=== PATIENT | female | born 1935 | race Caucasian/White ===

== ENCOUNTER → 2017-01-04 | Outpatient (CLI) | payer OTHER ==
--- NOTE | 2017-01-04 10:13 | DI ---
LEFT ANKLE, 01/04/2017 9:28 AM: Clinical History: Acute left ankle pain. Previous Exam: None at this facility. 3 views are submitted. There is soft tissue swelling both medially and laterally at the ankle joint. On the AP and oblique projections, there is a calcific density located inferiorly and medially to the tip of the medial malleolus. This may represent an avulsion fracture although there is no history of trauma indicated on the x-ray request. No other bony abnormality is noted. There is no ankle effusio n. Readin. There is a bony density inferior to the medial malleolus. This may represent an avulsion fracture although there is no indication and history that the patient sustained trauma. 2. The remainder of the examination is normal.
--- NOTE | 2017-01-04 10:16 | DI ---
LEFT OS CALCIS EXAM, 01/04/2017 9:28 AM: Clinical History: Left heel pain. Previous Exam: None at this facility. 2 views are submitted. There is no acute soft tissue, osseous, or joint abnormality. There is a bony spur on the calcaneus at the attachment of the plantar fascia. Calcifications are present in the plan tar fascia. Soft tissue swelling is present along the anterior aspect of the talus. Reading: No acute bony abnormalities are identified.
== END ==
LOC: MOB RAD 09:29
PROVIDERS: ATTEND Physician Assistant
DX: M79.672 Pain in left foot (principal); M77.32 Calcaneal spur, left foot
CPT/HCPCS: 73610; 73650

== ENCOUNTER 2018-09-05 11:29 | Inpatient (IN) ==
--- NOTE | 2018-09-05 11:46 | PDOC ---
Hip Injury/Pain HPI - General Chief Complaint: Lower Extremity Problem/Injury Stated Complaint: slip/fall right hip pain Date Seen by Provider: 09/05/18 Time Seen by Provider: 11:31 Source: POSITIVE: Patient Exam Limitations: POSITIVE: No limitations Nurse's Notes Reviewed & Considered: Yes EMS Report Reviewed & Considered: Verbal - History of Present Illness Initial Comments: 83 yo female presents to ED with complaint of right hip pain. patient slipped and fell on ice today. Patient denies blow to her head. Denies LOC. Denies neck pain. Denies pain in upper extremities. Denies CP/SOB. Denies N/V/D/C. Denies vision changes. Denies pain in lower leg. Denies lacerations/abrasions. Patient is unable to bear weight on right leg. Have you received a tetanus shot in the past 10 years?: Unknown Location: Right Hip Timing: REPORTS: Abrupt Duration: 1-3 hours Severity: Severe Location at Time of Onset: REPORTS: Street Context: REPORTS: Fall, Slipped Concurrent Injuries: DENIES: Neck, Head, Back, Chest, Abdomen, Extremities, Face Quality: REPORTS: Sharpness, Stabbing Modifying Factors: REPORTS: Movement Symptoms Prior to Fall: DENIES: Fever, Chills, Diaphoresis, Weakness, Chest Pain, Rapid Heart Rate, Nausea, Vomiting, Diarrhea, Dizziness, Light-Headedness, Headache, Seizure Subsequent Symptoms: REPORTS: Weakness. DENIES: Sensory Loss, Motor Loss, Numbness, Bowel / Bladder Problems Similar Symptoms Previously: No Recent Care Received: REPORTS: Denies Any Prior Injuries Related to Current Complaint?: No - Patient Home Medications Home Medications: Home Medications Bismuth Subsalicylate [Pepto-Bismol] 262 mg PO PRN PRN 07/10/13 Calcium Carbonate [Tums] 200 mg PO PRN PRN 07/10/13 Aspirin [Blake Chewable Aspirin] 81 mg PO DAILY tab 05/20/16 atorvastatin 20 mg tablet 20 mg PO QDAY #90 tab 05/18/18 ranitidine 150 mg tablet 150 mg PO QHS #90 tab 05/18/18 olmesartan 40 mg-hydrochlorothiazide 25 mg tablet 0.5 tab PO DAILY #15 tab 07/15/18 azithromycin 250 mg tablet 250 mg PO .COMPLEX #6 tab 07/28/18 budesonide-formoterol HFA 160 mcg-4.5 mcg/actuation aerosol inhaler 2 inh INH BID #10.2 g 07/28/18 promethazine 6.25 mg-codeine 10 mg/5 mL syrup 5 ml PO BID PRN #118 ml 07/28/18 - Patient Allergies Allergies/Adverse Reactions: Allergies Allergy/AdvReac Type Severity Reaction Status Date / Time Sulfa (Sulfonamide Allergy Intermediate HIVES Verified 09/05/18 11:37 Antibiotics) venom-honey bee AdvReac Mild SWELLING Verified 09/05/18 11:37 PCN Allergy Intermediate HIVES Uncoded 09/05/18 11:37 Past Medical History - heen HEENT History: Cataracts Cardiovascular History: Hypertension, Hyperlipidemia Respiratory History: Denies History Gastrointestinal History: GERD Genitourinary History: Denies History Endocrine History: Denies History Musculoskeletal History: Denies History Neurological History: Denies History Blood Disorders: Denies History Psychiatric History: Denies History History of Sexually Transmitted Diseases: No Cancer History: Denies History History of MDRO: No History of Other Communicable Diseases: No Alcohol Use: None In the Past 12 Months, Have Used or Abuse Any Substance: None Previous Surgical History: Yes Type / Date of Surgery: CATARACT EXT/ CORONARY ANGIOGRAM/ LUMPECTOMY Anesthesia Reactions: No Malignant Hyperthermia: No Significant Family History: No pertinent family hx ROS - Limitations ROS Limitations: No Limitations Constitution: REPORTS: Denies Symptoms Cardiovascular: REPORTS: Denies Cardiac Symptoms Respiratory: REPORTS: Denies Resp Symptoms Neurological: REPORTS: Denies Neuro Symptoms Gastrointestinal: REPORTS: Denies GI Symptoms Endocrine: REPORTS: Denies Symptoms Musculoskeletal: REPORTS: Other (Right hip and right leg pain) Genitourinary: REPORTS: Denies Symptoms Eyes: REPORTS: Denies Symptoms ENT: REPORTS: Denies Symptoms Skin: REPORTS: Denies Skin Symptoms Lympathic: REPORTS: Denies Lympathic Symptoms Immunologic: POSITIVE: Denies Symptoms Psychiatric: POSITIVE: Denies Psych Symptoms Hip Injury / Pain Exam - General Appearance General Appearance: POSITIVE: Alert, Cooperative, Moderate Distress - Lower Extremity Extremities: POSITIVE: No Pedal Edema, No Obvious Injury to Knee, No Deformity to Knee, Shortening of Leg, Hip Pain on Leg Movement. NEGATIVE: Pedal Edema (TTP right hip with shortening of right leg.), Ecchymosis, Erythema, Soft Tissue Injury - HEENT HEENT: POSITIVE: Head Inspection Nml, Eyes Inspection Nml, Ears Inspection Nml, Nose Inspection Nml, Oral/Dental Inspect. Nml, Pharynx Inspect. Nml, PERRL, EOMI - Pupil Size Pupil Size: 3 mm: Bilateral - Neck/Back Neck: POSITIVE: Normal Inspection, Non-Tender Back: POSITIVE: Normal Inspection, No CVA Tenderness, No Vertebral Tenderness - Respiratory / CVS Cardiovascular: POSITIVE: Regular Rate and Rhythm, Heart Sounds Normal, Equal Pulses, Strong Pulses Respiratory: POSITIVE: Chest Non Tender, No Ecchymosis, Breath Sounds Normal, No Respiratory Distress - Abdomen Abdomen: Soft: (All Quadrants), Normal Bowel Sounds: (All Quadrants), Denies Tenderness: (All Quadrants), No Splenomegaly: (All Quadrants), No Hepatomegaly: (All Quadrants), No Guarding: (All Quadrants), No Rebound: (All Quadrants), No Palpable Pulse: (All Quadrants), No Palpabale Mass: (All Quadrants), No Distention: (All Quadrants) - Skin Skin: POSITIVE: Color Normal, No Rash - Neuro/Psych Neuro / Psych: POSITIVE: Oriented x 3, Neuro Grossly Intact, Mood Appropriate, Affect Appropriate Hip Injury / Pain Progress - Results Reviewed by me Xrays/CTs/US Reviewed by me: Yes Discussed with Radiologist: No Radiology Findings: Fracture of right hip surgical neck, displaced superiorly. Pelvis appears normal on xrays. Lab Results Reviewed by Me: Yes CBC and BMP: 09/05/18 14:45 09/05/18 14:45 - Patient's Progress Pain Medication Addressed: POSITIVE: Yes (Initially patient refused then accepted morphine for pain) Re-Examine Time: 13:09 (Discussed results with patient and recommendation for admission. She & her are amenable to plan) Status: POSITIVE: Unchanged MDM / ED Course: 83 yo female presented with acute right hip pain after a fall on the ice today. Xrays of right hip show fracture of the neck of right femur. No pelvic fracture noted. Labs performed and reviewed. I recommended admission. Patient and were amenable to plan for admission. Case discussed with Dr. Miller of orthopedics and he will consult on the patient. I also discussed the case w haven Rodriguez of hospitalist service and he accepted the patient for admission. Patient was given two dose of morphine in ED for pain. Patient admitted to floor in stable but guarded condition. - Consult Consult (If Yes, Name of Consulting MD & Time Called): Yes (Consulted Dr. Miller orthopedics and Dr. Rodriguez hospitalist. ) Consulting MD will see pt:: POSITIVE: [facility] Admit Counseled: POSITIVE: Patient, Family, RE: Radiology Results, RE: DX (Discussed all results and consults with patient and her . They expressed understanding of need for admission.) Patient Care Time - Estimated PCT Patient Care Time (In Minutes): 60 Vital Signs - Recent Vital Signs Vital Signs: Vital Signs (Last 8 hours) Temp Pulse Resp BP Pulse Ox 09/05/18 14:11 83 16 09/05/18 11:50 97.4 F 68 18 176/75 91 - VS Reviewed Vital Signs Reviewed: Yes Discharge Clinical Impression: Fracture of hip, right, closed, Hip pain, acute Discharge Disposition: Admit to Inpatient (09/05/2018 at 1250) Condition: Good Date Decision to Admit to Inpatient: 09/05/18 Time Decision to Admit to Inpatient: 13:00
[2018-09-05] MEDS ORDERED: MORPHINE SULFATE 2 MG/1 ML IVP ONE ×2 (11:50→13:39)
--- NOTE | 2018-09-05 13:08 | DI ---
AP PELVIS and RIGHT HIP, 09/05/2018 11:46 AM: Clinical History: Injury. The patient fell. Pain. Previous Exam: None at this facility. Hip View: AP and cross table lateral. AP Pelvis: Soft Tissues: Normal. The patient is morbidly obese. This detracts from the overall quality and signi ficantly limits the diagnostic quality of the exam with respect to small or fine detail structures. Bony Pelvis: Intact. Subtle or occult fractures could be missed particularly because of the patient's size. Sacrum and SI Joints: Normal. Symphysis Pubis: Normal. Right Hip: Femoral Head/Neck Junction: Fracture through the neck. The neck appears to have been reabsorbed and t his suggests this may be a subacute or chronic fracture. Acetabulum: Non-dysplastic. No acetabular overcoverage. No retroversion. Hip Joint Space: Normal joint space. Readin. Fracture of the neck of the right hip. The neck appears to have been reabsorbed and this would johnson ggest this is a subacute or chronic fracture. If further detail is required, then consider a CT scan of the pelvis. 2. The AP pelvis exam appears normal. Because of the patient's size, subtle fractures could be misse d.
--- NOTE | 2018-09-05 13:59 | PDOC ---
HPI - History of Present Illness History of Present Illness: This very nice 83-year-old female who comes to the ER complaining of right hip pain, unfortunately she is slipped on the ice today hurting her right side. In the ER x-ray revealed fracture of the head of the femur. She denies hitting any other part of her body nice passing out no chest pain nausea or vomiting to be surgeon was called already by the ER physician hospitalist service be admitting her for further evaluation and treatment by orthopedic Past Medical History Medical History: Hypertension, high cholesterol Tobacco Use: Former Smoker In the Past 12 Months, Have Used or Abuse Any of the Following Substance: None Medication / Allergies Home Medications: Home Medications Medication Instructions Recorded Confirmed Type Bismuth Subsalicylate 262 mg PO PRN PRN 07/10/13 09/05/18 History [Pepto-Bismol] Calcium Carbonate [Tums] 200 mg PO PRN PRN 07/10/13 09/05/18 History Aspirin [Blake Chewable Aspirin] 81 mg PO DAILY tab 05/20/16 09/05/18 History atorvastatin 20 mg tablet 20 mg PO QDAY #90 tab 05/18/18 09/05/18 Rx ranitidine 150 mg tablet 150 mg PO QHS #90 tab 05/18/18 09/05/18 Rx olmesartan 40 0.5 tab PO DAILY #15 tab 07/15/18 09/05/18 Rx mg-hydrochlorothiazide 25 mg tablet azithromycin 250 mg tablet 250 mg PO .COMPLEX #6 tab 07/28/18 09/05/18 Rx budesonide-formoterol HFA 160 2 inh INH BID #10.2 g 07/28/18 09/05/18 Rx mcg-4.5 mcg/actuation aerosol inhaler promethazine 6.25 mg-codeine 10 5 ml PO BID PRN #118 ml 07/28/18 09/05/18 Rx mg/5 mL syrup Allergies/Adverse Reactions: Allergies Allergy/AdvReac Type Severity Reaction Status Date / Time Sulfa (Sulfonamide Allergy Intermediate HIVES Verified 09/05/18 11:37 Antibiotics) venom-honey bee AdvReac Mild SWELLING Verified 09/05/18 11:37 PCN Allergy Intermediate HIVES Uncoded 09/05/18 11:37 Review of Systems - Review of Systems All Systems: Reviewed & No Additional Complaints Except as Stated - Respiratory Respiratory: DENIES: Negative System Review, Cough, Sputum, Dyspnea At Rest, Dyspnea with Exertion, Pleuritic Pain, Hemoptysis, Wheezing, Other, See HPI - Cardiovascular Cardiovascular: DENIES: Negative System Review, Chest Pain, Edema, Syncope, Palpitations, Orthopnea, Paroxysmal Nocturnal Dyspnea, Other, See HPI - Gastrointestinal Gastrointestinal / Abdominal: DENIES: Negative System Review, Nausea, Vomiting, Diarrhea, Constipation, Abdominal Pain, Bloody Stool, Poor Appetite, Heartburn, Regurgitation, Bloating, Lactose Intolerance, Melena, Bright Red Blood per Rectum, Other, See HPI Exam - Vitals Vital Signs: Vital Signs Temperature 97.4 F Temperature Source Temporal Artery Scan Pulse Rate [Pulse Oximeter 68 Bilateral] Respiratory Rate 18 Blood Pressure [Left Arm] 176/75 Pulse Ox 91 Oxygen Delivery Method Room Air Height 5 ft 3 in Weight 182 lb - General General Appearance: No Acute Distress, Cooperative - Neck Neck Exam: Normal Inspection, Full ROM, No Tenderness, No Lymphadenopathy, No Thyromegaly, JVP is not Raised - Respiratory Respiratory Exam: POSITIVE: Clear to Auscultation - Bilaterally, Breathing Non Labored, Normal To Percussion, Normal to Percussion and Palpation - Cardiovascular Cardiovascular Exam: POSITIVE: RRR, No Murmur, No Clicks, No Gallops, No Rubs, PMI Non-Displaced, +S1 - GI/Abdominal GI/Abdominal Exam: POSITIVE: Normal Bowel Sounds, Non Tender, Non Distended, Soft, No Masses, No Hepatomegaly, No Splenomegaly, No Organomegaly - Extremities Extremities Exam: POSITIVE: No Clubbing Present, +1 Edema Assessment and Plan - Patient Problems (1) Hip fracture Current Visit: Yes Status: Acute Comment: Dr. Miller surgeon was consulteddefer for further evaluation and treatment Code(s): S72.009A - Fracture of unspecified part of neck of unspecified femur, initial encounter for closed fracture (2) Benign essential hypertension Current Visit: No Status: Acute Onset Date: 08/03/12 Comment: Tinea current home medication will give 1 dose of IV Lasix considering the pulse 1 edema Code(s): I10 - Essential (primary) hypertension
[2018-09-05] MEDS ORDERED: LIDOCAINE HCL 2 % 10 ML JELLY URO-JECT TOPICAL PRN ×2 (14:00→15:34)
[2018-09-05] MEDS ORDERED: CALCIUM CARBONATE 500 MG (TUMS) CHEWABLE TABLET PO PRN ×2 (14:10)
[2018-09-05] MEDS ORDERED: ACETAMINOPHEN 325 MG TABLET PO PRN (14:10)
[2018-09-05] MEDS ORDERED: HYDROmorphone 2 MG/1 ML IVP PRN (14:10)
[2018-09-05] MEDS ORDERED: Prometh/Codeine Liquid 10/6.25 MG/5 ML ORAL.SYRIN PO PRN (14:10)
[2018-09-05] MEDS ORDERED: DOCUSATE 100 MG CAPSULE PO PRN (14:10)
[2018-09-05] MEDS ORDERED: ONDANSETRON 4 MG/2 ML VIAL IVP PRN (14:10)
[2018-09-05] MEDS ORDERED: HYDROcodone-APAP 5 MG -325 MG TABLET PO PRN ×2 (14:10→16:27)
[2018-09-05] MEDS ORDERED: LIDOCAINE W/ SODIUM BICARB 0.5 ML SYR SUBD PRN (14:10)
--- NOTE | 2018-09-05 14:15 | DI ---
XR HIP 1VW U/L,09/05/2018 1:12 PM: Clinical History: Left hip pain. Previous Exam: None at this facility. Findings: A single view of the left hip is obtained, and demonstrate mild diffuse osteopenia. There is no fract ure seen on this exam. There is mild loss of joint space within the left hip. Impression: Degenerative changes of the left hip without fractures.
[2018-09-05 14:58] LABS: Hematocrit [HCT] 42.1 % (37.0-47.0); Hemoglobin [HGB] 14.5 g/dL (12.0-16.0); MEAN CORPUSCULAR HEMOGLOBIN 30.1 PG (27-31); MEAN CORPUSCULAR HGB CONC 34.4 g/dL (33-37); MEAN CORPUSCULAR VOLUME 87.5 FL (81-99); MEAN PLATELET VOLUME 10.3 FL (7.4-12.2); RED BLOOD COUNT 4.81 10^6/uL (4.20-5.40)
[2018-09-05 15:04] LABS: BLOOD UREA NITROGEN 21 mg/dL (7-22); SERUM ALBUMIN 3.9 g/dL (3.5-4.8)
[2018-09-05 15:40] LABS: BILIRUBIN,URINE NEGATIVE (NEG); CLARITY,URINE Slightly Cloudy (CLEAR); COLOR,URINE YELLOW (Y); GLUCOSE, URINE (UA) NEGATIVE (NEG); PH,URINE 5.5 (5.0-8.5); PROTEIN,URINE TRACE mg/dl (NEG)
[2018-09-05 15:50] LABS: OCCULT BLOOD,URINE TRACE (NEG); URINE SAMPLE TYPE CATH SPECIMEN
[2018-09-05 15:51] LABS: SQUAMOUS EPITHELIAL CELL,UR MANY
--- NOTE | 2018-09-05 16:07 | CONSULT ---
Consult Note - Consult Consult Date: 09/05/18 Reason for Consult: PreOp Consulation : Ortho Requesting Physician: Dr Rodriguez Primary Care Provider: Deejay Magallon MD - History of Present Illness History of Present Illness: Patient is an 83-year-old female who slipped on ice today landing on her right side immediate pain and discomfort and deformity to the right lower extremity with external rotation and shortening. Patient was brought to the emergency room where x-rays were taken and found to have a displaced femoral neck fracture. Patient notes that she had no pain in the hip prior to the fall today she is perfectly fine. She also denies any presyncopal episodes no dizziness shortness of breath chest pain lightheadedness or other changes and patient notes that she had no loss of consciousness or other symptoms with the fall. Past Medical History Medical History: Hypertension, high cholesterol Tobacco Use: Former Smoker In the Past 12 Months, Have Used or Abuse Any of the Following Substance: None Medication / Allergies Home Medications: Home Medications 3 Medication Instructions Recorded Confirmed Type Bismuth Subsalicylate 262 mg PO PRN PRN 07/10/13 09/05/18 History [Pepto-Bismol] Calcium Carbonate [Tums] 200 mg PO PRN PRN 07/10/13 09/05/18 History Aspirin [Blake Chewable Aspirin] 81 mg PO DAILY tab 05/20/16 09/05/18 History atorvastatin 20 mg tablet 20 mg PO QDAY #90 tab 05/18/18 09/05/18 Rx ranitidine 150 mg tablet 150 mg PO QHS #90 tab 05/18/18 09/05/18 Rx olmesartan 40 0.5 tab PO DAILY #15 tab 07/15/18 09/05/18 Rx mg-hydrochlorothiazide 25 mg tablet azithromycin 250 mg tablet 250 mg PO .COMPLEX #6 tab 07/28/18 09/05/18 Rx budesonide-formoterol HFA 160 2 inh INH BID #10.2 g 07/28/18 09/05/18 Rx mcg-4.5 mcg/actuation aerosol inhaler promethazine 6.25 mg-codeine 10 5 ml PO BID PRN #118 ml 07/28/18 09/05/18 Rx mg/5 mL syrup Allergies/Adverse Reactions: Allergies Allergy/AdvReac Type Severity Reaction Status Date / Time Sulfa (Sulfonamide Allergy Intermediate HIVES Verified 09/05/18 11:37 Antibiotics) venom-honey bee AdvReac Mild SWELLING Verified 09/05/18 11:37 PCN Allergy Intermediate HIVES Uncoded 09/05/18 11:37 Exam - - Exam: Examination shows that the patient has a shortened externally rotated extremity on the right. She has good motor and sensory to the foot and ankle. She has good pulses. She has no significant distal swelling or edema. Patient with l imited motion and has quite a bit of pain and discomfort she has no areas of skin breakdown or other lesions around the hip. Patient denies any pain with squeezing of the pelvis shows no pain in the left lower extremity or upper extremities. She has no pain in the neck or low back region. Radiographs of the pelvis show a displaced femoral neck fracture on the right femoral of rotation. The templated view was obtained of the left with a marker for templating size of the femoral stem and head. Laboratory Results 09/05/18 09/05/18 09/05/18 14:29 14:30 14:45 WBC 9.89 RBC 4.81 Hgb 14.5 Hct 42.1 MCV 87.5 MCH 30.1 MCHC 34.4 RDW Std Deviation 51.4 H RDW Coeff of [place] 16.3 H Plt Count 233 MPV 10.3 PT INR Sodium Potassium Chloride Carbon Dioxide Anion Gap BUN Creatinine BUN/Creatinine Ratio Glucose Calculated Osmolality Calcium Total Bilirubin AST ALT Alkaline Phosphatase Troponin I < 0.012 NT-Pro-B Natriuret Pep 145 Total Protein Albumin Globulin Albumin/Globulin Ratio Ur Collection Type Urine Color Urine Clarity Urine pH Ur Specific [place] Urine Protein Urine Glucose (UA) Urine Ketones Urine Occult Blood Urine Nitrate Urine Bilirubin Urine Urobilinogen Ur Leukocyte Esterase Urine RBC Urine WBC Ur Squamous Epith Cells Ur Renal Epithelial Cell Urine Crystals Urine Bacteria Urine Casts Urine Mucus Urine Trichomonas Urine Yeast Ur Culture Indicated? 09/05/18 09/05/18 09/05/18 14:45 14:57 15:30 WBC RBC Hgb Hct MCV MCH MCHC RDW Std Deviation RDW Coeff of [place] Plt Count MPV PT 10.4 INR 1.02 Sodium 140 Potassium 4.2 Chloride 105 Carbon Dioxide 27 Anion Gap 8 BUN 21 Creatinine 0.6 BUN/Creatinine Ratio 35.00 H Glucose 121 H Calculated Osmolality 293.0 H Calcium 9.0 Total Bilirubin 0.8 AST 32 ALT 26 Alkaline Phosphatase 121 Troponin I NT-Pro-B Natriuret Pep Total Protein 6.7 Albumin 3.9 Globulin 2.9 Albumin/Globulin Ratio 1.30 Ur Collection Type Cath specimen Urine Color Yellow Urine Clarity Slightly cloudy Urine pH 5.5 Ur Specific [place] 1.025 Urine Protein Trace Urine Glucose (UA) Negative Urine Ketones 15 Urine Occult Blood Trace H Urine Nitrate Negative Urine Bilirubin Negative Urine Urobilinogen 1.0 Ur Leukocyte Esterase Negative Urine RBC 8-10 Urine WBC 6-8 Ur Squamous Epith Cells Many Ur Renal Epithelial Cell None Urine Crystals None Urine Bacteria None Urine Casts None Urine Mucus Moderate Urine Trichomonas None Urine Yeast None Ur Culture Indicated? Culture set Vital Signs (Last 8 hours) Temp Pulse Resp BP Pulse Ox 09/05/18 14:11 83 16 09/05/18 11:50 97.4 F 68 18 176/75 91 - Vitals Vital Signs: Vital Signs Temperature 97.4 F Temperature Source Temporal Artery Scan Pulse Rate [Pulse Oximeter 83 Bilateral] Respiratory Rate 16 Blood Pressure [Left Arm] 176/75 Pulse Ox 91 Oxygen Delivery Method Room Air Height 5 ft 2 in Weight 81.221 kg Results - Labs CBC and BMP: 09/05/18 14:45 09/05/18 14:45 Assessment and Plan - Assessment / Plan Additional Assessment/Plan Details: Impression: Left displaced femoral neck fracture Plan: We discussed the patient's current condition and clinical findings as it pertains to the current situation. Surgical versus nonsurgical options risks and benefits were discussed and reviewed. Options moving forward include but are not limited to continued choice to live with their current condition; evaluate their current condition further with imaging studies and/or diagnostic testing, etc.; treat problem/problems with surgical versus nonsurgical methods. The patient demonstrates a clear understanding of our discussion. All questions were answered. Surgical versus nonsurgical options risks and benefits were discussed and reviewed. The risks include but are not limited to bleeding, infection, neurovascular damage, wound problems, deep vein thromboses, pulmonary embolism, fracture, dislocation, nonunion/malunion, need for further surgery, need for blood transfusion, and loss of life and limb. Certainly any surgical procedure may not improve symptoms and potentially could makes symptoms worse. There are no guarantees implied with the discussion of surgical treatment. All questions are answered and the patient wishes to proceed with surgical treatment. Had a long discussion with the patient and her in regard to treatment of this fracture I think in her best interest to be served by either hemiarthroplasty or total hip replacement. She would prefer hemiarthroplasty but as a discussed with the patient if her femoral head which measures on the small side is too small for bipolar we may be required to do a total hip replacement. She understands wishes to proceed along these lines. We'll await medical clearance.
[2018-09-05] MEDS: BUDESONIDE 0.5 MG/2 ML NEB SCH (19:26)
[2018-09-05] MEDS: ARFORMOTEROL NEB SOLN 15 MCG/2 ML NEB SCH (19:27)
[2018-09-05] MEDS ORDERED: ATORVASTATIN 20 MG TABLET PO SCH (21:00)
[2018-09-05] MEDS ORDERED: Non-Formulary Drug (Budesonide/Formoterol Fumarate [Symbicort 160-4.5 Mcg Inhaler] 2 INH) INH SCH (21:00)
[2018-09-05] MEDS ORDERED: FAMOTIDINE 20 MG TABLET PO SCH (21:00)
[2018-09-06] MEDS ORDERED: Ketorolac Inj 30 MG, Morphine Inj (Ortho Cocktail) 5 MG, BUPivacaine Inj 0.25% PF 150 MG SPLASH ONE ×3 (06:26)
[2018-09-06] MEDS ORDERED: Clindamycin 900mg (Premix) 900 MG/50 ML BAG IV ONE ×2 (06:26→10:19)
[2018-09-06] MEDS ORDERED: BUPivacaine Liposome/PF (Exparel) Inj 20ml vial INFIL ONE ×2 (06:26→09:50)
[2018-09-06] MEDS ORDERED: LIDOCAINE W/ SODIUM BICARB 0.5 ML SYR SUBD PRN (06:26)
[2018-09-06] MEDS ORDERED: Nasal Sanitizer POPSWAB ampule 3 AMP (Nozin) PREOP DOSE ENOS SCH (06:30)
[2018-09-06] MEDS ORDERED: Tranexamic Acid 1,000 MG in Sodium Chloride 0.9% 100 ML IV SCH (06:30)
[2018-09-06] MEDS: Lactated Ringers 1,000 ML PRIMARY IV SCH ×3 (06:57→23:23)
[2018-09-06] MEDS ORDERED: HYDROCHLOROTHIAZIDE 12.5 MG CAPSULE PO SCH (07:00)
[2018-09-06] MEDS: ARFORMOTEROL NEB SOLN 15 MCG/2 ML NEB SCH (07:13)
[2018-09-06] MEDS: BUDESONIDE 0.5 MG/2 ML NEB SCH (07:13)
[2018-09-06] MEDS: FUROSEMIDE 10 MG/1 ML - 2 ML VIAL IVP SCH ×2 (08:33→14:09)
[2018-09-06] MEDS ORDERED: Olmesartan Tab 20 MG TAB PO SCH (09:00)
[2018-09-06] MEDS ORDERED: HYDROCHLOROTHIAZIDE PO SCH (09:00)
[2018-09-06] MEDS ORDERED: OLMESARTAN PO SCH (09:00)
[2018-09-06] MEDS ORDERED: ASPIRIN 81 MG (BABY) CHEWABLE TABLET PO SCH (09:00)
--- NOTE | 2018-09-06 09:03 | PDOC(PROG) ---
Interval History: Patient is doing great no chest pain nausea or vomiting gone for surgery and a little bit Objective : Data - Labs CBC and BMP: 09/05/18 14:45 09/05/18 14:45 Objective : Exam - General General Appearance: Cooperative - Respiratory Respiratory Exam: Clear to Auscultation - Bilaterally, Breathing Non Labored, Normal To Percussion, Normal to Percussion and Palpation - Cardiovascular Cardiovascular Exam: RRR, No Murmur, No Clicks, No Gallops, No Rubs, PMI Non- Displaced - GI/Abdominal GI/Abdominal Exam: Normal Bowel Sounds, Non Tender, Non Distended, Soft, No Masses, No Hepatomegaly, No Splenomegaly, No Organomegaly - Extremities Extremities Exam: No Clubbing Present, No Edema Present Assessment and Plan - Patient Problems (1) Hip fracture Current Visit: Yes Status: Acute Comment: Stable will be going to surgery this morning with Dr. Miller Code(s): S72.009A - Fracture of unspecified part of neck of unspecified femur, initial encounter for closed fracture (2) Benign essential hypertension Current Visit: No Status: Acute Onset Date: 08/03/12 Comment: Stable at present time continue ARB Code(s): I10 - Essential (primary) hypertension
[2018-09-06] MEDS ORDERED: Sodium Chloride 0.9% 500 ML ONE (09:45)
[2018-09-06] MEDS ORDERED: Sodium Chloride 0.9% 2,000 ML PRIMARY IV ONE (09:45)
[2018-09-06] MEDS ORDERED: Gentamicin Inj 40 MG/ML VIAL ONE (09:48)
[2018-09-06] MEDS ORDERED: Sodium Chloride 0.9% vial 40 ML ONE (09:50)
[2018-09-06] MEDS ORDERED: MIDAZOLAM 5 MG/1 ML ONE (10:17)
[2018-09-06] MEDS ORDERED: fentaNYL Inj 250 MCG/5 ML VIAL ONE (10:17)
[2018-09-06] MEDS ORDERED: PROPOFOL 10 MG/1 ML (200 MG/20 ML) VIAL IV ONE ×2 (10:18→13:37)
[2018-09-06] MEDS ORDERED: HEPARIN 10,000 UNIT/1 ML ONE (10:26)
[2018-09-06] MEDS ORDERED: EPINEPHrine Inj (1:1,000) 1 mg/ml amp ONE (10:27)
[2018-09-06] MEDS ORDERED: MORPHINE SULFATE/PF 10 MG/10 ML AMPULE ONE (11:00)
[2018-09-06] MEDS ORDERED: PHENYLEPHRINE 10,000 MCG/1 ML VIAL ONE (12:14)
[2018-09-06] MEDS ORDERED: Hetastarch 6% + NS 500 ML IV ONE (12:54)
--- NOTE | 2018-09-06 13:21 | CRNA.PROGR ---
<Samy Crowell - Last Filed: 09/06/18 14:35> Anesthesia Time - Procedure/Recovery Time Anesthesia : Time Out: 14:24 - Other Physical Status: P3 <Meseret Roblero - Last Filed: 09/22/18 09:08> Anesthesia Time - Procedure/Recovery Time Start Date: 09/06/18 End Date: 09/06/18 Anesthesia : Time In: 11:54 - Block Time Start Date: 09/06/18 End Date: 09/06/18 PreOp Block : Time In: 11:15 PreOp Block : Time Out: 11:45 PreOp Block : Total Time: 30 - Total Anesthesia Time Total Anesthesia Time (minutes): 30 - Other Weight: 81.221 kg Height: 5 ft 2 in Body Mass Index (BMI): 32.7 Anesthesia Type: Spinal Block
--- NOTE | 2018-09-06 13:33 | CRNA.PROCE ---
Central Neuraxis Block [facility] - - Safety Measures: Site Verified - - Type of Block: Subarachnoid Reason for Block: Surgical Moniters Used During Block: EKG, SPO2 Sedation Used - Enter Amount Used in Comment Field: Midazolam (mg): Yes (3), Fentanyl (mcg): Yes (50) Positioning: Lateral (Right side down) Skin Prep Used: ChloroPrep (Twice) Draped: Yes Skin Infiltration - Enter Amount Used in Comment Field: 1% Xylocaine (mL): Yes (1.25) Introducer User: None Spinal Needle Used: 22 Fanta 80 mm Local Anesthetic - Enter Amount Used in Comment Field: 0.75 % Bupivacaine with Dextrose (ml): Yes (2.0) Additive Used - Enter Amount Used in Comment Field: Preservative Free Morphine (mg): Yes (0.12), Epinephrine 1:1000 Needle Rinse (mL): Yes (hub rinse) - - Additional Details: Right side lying times 20 min post SAB medication injected for Block. Good block Anesthesia Time - Block Time PreOp Block : Time In: 11:15 PreOp Block : Time Out: 11:45 - Other Weight: 81.221 kg Height: 5 ft 2 in Body Mass Index (BMI): 32.7
[2018-09-06] MEDS ORDERED: Lactated Ringers 1,000 ML PRIMARY IV ONE (13:46)
--- NOTE | 2018-09-06 14:46 | ORTHO.OP ---
- - -: See Dictated Operative Report Procedure Codes - Hip Procedures Primary Hip Procedure: Other CPT Code(s) (cpt 64366, maribel IBARRA assisted, Allen Saha MD assisted)
[2018-09-06] MEDS ORDERED: BISMUTH SUBSALICYLATE 262 MG PO PRN (15:42)
[2018-09-06] MEDS ORDERED: ONDANSETRON 4 MG/2 ML VIAL IVP PRN (15:42)
[2018-09-06] MEDS ORDERED: HYDROmorphone 2 MG/1 ML IVP PRN (15:42)
[2018-09-06] MEDS ORDERED: AZITHROMYCIN 250 MG TABLET PO SCH (15:42)
--- NOTE | 2018-09-06 17:05 | DI ---
AP PELVIS AND RIGHT HIP, 09/06/2018 2:37 PM: Clinical History: Status post right hemiarthroplasty. Right hip fracture. Previous Exam: 09/05/2018. Views: AP pelvis with AP and lateral views of replaced hip. Patient is status post right hemiarthroplasty. Prosthetic joint articulates normally. Reading: Status post right hemiarthroplasty. Prosthetic joint articulates normally.
[2018-09-06] MEDS: Clindamycin 900mg (Premix) 900 MG/50 ML BAG IV SCH ×2 (17:58→23:23)
[2018-09-06] MEDS: DOCUSATE 100 MG CAPSULE PO SCH (20:21)
[2018-09-06] MEDS: HYDROcodone-APAP 5 MG -325 MG TABLET PO PRN (20:21)
[2018-09-07] MEDS ORDERED: Sodium Chloride 0.9% 1,000 ML PRIMARY IV ONE (04:36)
[2018-09-07] MEDS: Clindamycin 900mg (Premix) 900 MG/50 ML BAG IV SCH (05:02)
[2018-09-07 06:30] LABS: BLOOD UREA NITROGEN 22 mg/dL (7-22); BUN/CREATININE RATIO 36.66 (6-20)
[2018-09-07 06:34] LABS: BASOPHILS # (AUTO) 0.01 10*3/UL; BASOPHILS % (AUTO) 0.1 % (0-1); EOSINOPHILS # (AUTO) 0.24 10*3/UL; EOSINOPHILS % (AUTO) 3.1 % (0-8); Hemoglobin [HGB] 12.5 g/dL (12.0-16.0); LYMPHOCYTES # (AUTO) 1.18 10*3/uL; MEAN CORPUSCULAR HGB CONC 32.9 g/dL (33-37); MEAN CORPUSCULAR VOLUME 88.2 FL (81-99); MEAN PLATELET VOLUME 10.5 FL (7.4-12.2); MONOCYTES # (AUTO) 0.53 10*3/UL (0.3-0.8); MONOCYTES % (AUTO) 6.9 % (5-15); NEUTROPHILS # (AUTO) 5.66 10*3/UL; NEUTROPHILS % (AUTO) 74.2 % (50-80); RED BLOOD COUNT 4.31 10^6/uL (4.20-5.40)
[2018-09-07 06:38] LABS: PLATELET MORPHOLOGY COMMENT NORMAL MORPHOLOGY (NORM); RBC MORPHOLOGY COMMENT NORMAL MORPHOLOGY (NORM); WBC MORPHOLOGY COMMENT NORMAL MORPHOLOGY (NORM)
[2018-09-07] MEDS: DOCUSATE 100 MG CAPSULE PO SCH ×2 (09:28→20:11)
[2018-09-07] MEDS: ENOXAPARIN SODIUM 30 MG/0.3 ML SYRINGE SUBCUT SCH (09:29)
[2018-09-07] MEDS: HYDROcodone-APAP 5 MG -325 MG TABLET PO PRN ×2 (09:33→17:20)
[2018-09-07] MEDS ORDERED: ePHEDrine Inj 50 MG/ML AMP IVP ONE (11:22)
[2018-09-07] MEDS ORDERED: Lactated Ringers 1,000 ML PRIMARY IV ONE (11:23)
--- NOTE | 2018-09-07 11:26 | PT.PROG ---
Progress Note Progress Note: Per nursing hold PT till this afternoon having blood pressure issues and medication issues.
[2018-09-07] MEDS: Lactated Ringers 1,000 ML PRIMARY IV SCH ×3 (12:30→23:40)
--- NOTE | 2018-09-07 16:20 | PDOC(PROG) ---
Date of Service: 09/07/18 Time of Service: 16:15 Interval History: Patient was seen and evaluated earlier this morning with RN present. Hypotensive, but no nausea or vomiting. Hemoglobin and hematocrit do not indicate need for transfusion. Had Duramorph I am told. Discussed with her and son at bedside. Patient has had 6-8 months of increasing short-term memory loss and signs consistent with dementia. No complaints of chest pain or shortness of breath. No nausea or vomiting. Objective : Data - Labs CBC and BMP: 09/07/18 05:00 09/07/18 04:30 Objective : Exam - General General Appearance: No Acute Distress, Cooperative Additional General Exam Details: Vital Signs - Last Taken Temperature 98.4 F 09/07/18 15:55 Pulse Rate 84 09/07/18 15:55 Respiratory Rate 14 09/07/18 15:55 Blood Pressure 112/59 09/07/18 15:55 Pulse Ox 100 09/07/18 15:55 - Eye Eye Exam: No Scleral Icterus - ENT ENT Exam: Mucous Membranes Moist - Neck Neck Exam: JVP is not Raised - Respiratory Respiratory Exam: Clear to Auscultation - Bilaterally, Breathing Non Labored - Cardiovascular Cardiovascular Exam: RRR, No Murmur, No Clicks, No Gallops, No Rubs, No JVD - GI/Abdominal GI/Abdominal Exam: Normal Bowel Sounds, Non Tender, Non Distended, Soft - Extremities Extremities Exam: No Clubbing Present, No Edema Present, No Cyanosis Present Additional Extremities Exam Details: Right hip is dressed, clean, dry, intact - Neurological Neurological Exam: Alert, No Facial Droop, Speech Intact / Clear, Moves All Extremities Equally Additional Neurological Exam Details: Alert to person. She knows she is in the hospital but I don't think she knows about her situation and is not oriented to time. Assessment and Plan - Patient Problems (1) Benign essential hypertension Current Visit: Yes Status: Chronic Onset Date: 08/03/12 Code(s): I10 - Essential (primary) hypertension (2) Hip fracture Current Visit: Yes Status: Acute Code(s): S72.009A - Fracture of unspecified part of neck of unspecified femur, initial encounter for closed fracture Qualifiers: Encounter type: initial encounter Fracture type: closed Laterality: right Qualified Code(s): S72.001A - Fracture of unspecified part of neck of right femur, initial encounter for closed fracture (3) Hypercholesterolemia Current Visit: Yes Status: Acute Code(s): E78.00 - Pure hypercholesterolemia, unspecified (4) Dementia Current Visit: Yes Status: Acute Code(s): F03.90 - Unspecified dementia without behavioral disturbance Qualifiers: Dementia type: Alzheimer's disease Alzheimer's disease onset: late-onset Dementia behavioral disturbance: without behavioral disturbance Qualified Code(s): G30.1 - Alzheimer's disease with late onset; F02.80 - Dementia in other diseases classified elsewhere without behavioral disturbance - Assessment / Plan Additional Assessment/Plan Details: PT and OT. Pain medications but stop Dilaudid. Patient with hypertension, will give ephedrine and also fluid bolus. Continue LR. Check blood counts in a.m. DVT prophylaxis as per orthopedics. Given hip fracture, and recommend 28-35 days. Likely will need swing bed here. Lab OT also do a cognition and MOCA evaluation
--- NOTE | 2018-09-07 17:45 | ORTHO.PROG ---
Last Taken Vital Signs: Vital Signs - Last Taken Temperature 98.4 F 09/07/18 15:55 Pulse Rate 84 09/07/18 15:55 Respiratory Rate 14 09/07/18 15:55 Blood Pressure 112/59 09/07/18 15:55 Pulse Ox 100 09/07/18 15:55 Subjective: Patient notes pain well-controlled today, this area. No active issues Laboratory Results 09/07/18 09/07/18 04:30 05:00 WBC 7.64 RBC 4.31 Hgb 12.5 Hct 38.0 MCV 88.2 MCH 29.0 MCHC 32.9 L RDW Std Deviation 52.7 H RDW Coeff of Franklin 16.6 H Plt Count 190 MPV 10.5 Immature Gran % (Auto) 0.3 Neut % (Auto) 74.2 Lymph % (Auto) 15.4 Vance % (Auto) 6.9 Eos % (Auto) 3.1 Baso % (Auto) 0.1 Immature Gran # (Auto) 0.02 Neut # (Auto) 5.66 Lymph # (Auto) 1.18 Vance # (Auto) 0.53 Eos # (Auto) 0.24 Baso # (Auto) 0.01 WBC Morphology Comment Normal morphology Plt Morphology Comment Normal morphology RBC Morph Comment Normal morphology Sodium 137 Potassium 4.1 Chloride 103 Carbon Dioxide 26 Anion Gap 8 BUN 22 Creatinine 0.6 BUN/Creatinine Ratio 36.66 H Glucose 104 Calculated Osmolality 286.0 Calcium 7.8 L Vital Signs (24 hrs) 09/06/18 17:59 09/06/18 19:00 09/06/18 20:37 Temperature 97.2 F 97.1 F Pulse Rate [Lying] Pulse Rate [Pulse Oximeter Bilateral] 83 Pulse Rate [Pulse Oximeter] 59 L 65 65 Pulse Rate [Sitting] Pulse Rate [Standing] Respiratory Rate 12 14 14 Blood Pressure [Left Arm] 134/64 127/61 Blood Pressure [Lying] Blood Pressure [Right Arm] Blood Pressure [Sitting] Blood Pressure [Standing] Pulse Ox 98 93 09/07/18 00:22 09/07/18 02:52 09/07/18 05:00 Temperature 97.3 F 97.1 F Pulse Rate [Lying] Pulse Rate [Pulse Oximeter Bilateral] Pulse Rate [Pulse Oximeter] 66 77 Pulse Rate [Sitting] Pulse Rate [Standing] Respiratory Rate 16 16 Blood Pressure [Left Arm] 91/56 104/51 Blood Pressure [Lying] Blood Pressure [Right Arm] Blood Pressure [Sitting] Blood Pressure [Standing] Pulse Ox 93 96 98 09/07/18 05:19 09/07/18 06:59 09/07/18 10:54 Temperature 98.9 F Pulse Rate [Lying] 87 Pulse Rate [Pulse Oximeter Bilateral] Pulse Rate [Pulse Oximeter] 80 Pulse Rate [Sitting] 82 Pulse Rate [Standing] 91 Respiratory Rate 16 Blood Pressure [Left Arm] Blood Pressure [Lying] 91/45 Blood Pressure [Right Arm] 99/48 Blood Pressure [Sitting] 97/46 Blood Pressure [Standing] 86/68 Pulse Ox 96 96 09/07/18 12:58 09/07/18 15:55 Temperature 97 F 98.4 F Pulse Rate [Lying] Pulse Rate [Pulse Oximeter Bilateral] Pulse Rate [Pulse Oximeter] 81 84 Pulse Rate [Sitting] Pulse Rate [Standing] Respiratory Rate 20 14 Blood Pressure [Left Arm] 97/46 Blood Pressure [Lying] Blood Pressure [Right Arm] 112/59 Blood Pressure [Sitting] Blood Pressure [Standing] Pulse Ox 95 100 Objective: Examination shows that the patient's leg clean and dry no evidence of infection. The negative pressure dressing is in place. Motor and sensory exam lower extremity seems to be good with no focal aberrations of the current time. Notes pain, popliteal, adductor hiatus or thigh pain. Assessment: Right hemiarthroplasty overall doing well some hypotension that has been controlled with IV resuscitation. Plan: Right hemiarthroplasty stable, patient will continue with physical therapy occupational therapy. She was a little delayed in starting therapy because of her hypotension but this seems to be resolving nicely. She'll progress accordingly DVT prophylaxis as needed and IV and oral pain medication as needed.
--- NOTE | 2018-09-07 17:46 | DI ---
CT Head WO Contrast,09/07/2018 4:24 PM: Clinical History: Confusion, dementia and recent fall. Previous Exam: None at this facility. Findings: Multiple helically acquired CT images are obtained through the brain without contrast, and demonstrat e diffuse age-related volume loss. There is no mass, hemorrhage or midline shift. The surrounding sof t tissue and osseous structures are unremarkable. Paranasal sinuses and intraorbital structures are u nremarkable. Impression: Mild diffuse age-related volume loss without acute intracranial pathology.
[2018-09-08] MEDS: HYDROcodone-APAP 5 MG -325 MG TABLET PO PRN ×3 (02:22→14:26)
[2018-09-08 04:50] LABS: BASOPHILS # (AUTO) 0.02 10*3/UL; BASOPHILS % (AUTO) 0.3 % (0-1); EOSINOPHILS # (AUTO) 0.12 10*3/UL; EOSINOPHILS % (AUTO) 1.7 % (0-8); Hematocrit [HCT] 30.2 % (37.0-47.0); Hemoglobin [HGB] 9.9 g/dL (12.0-16.0); LYMPHOCYTES # (AUTO) 1.34 10*3/uL; MEAN CORPUSCULAR HEMOGLOBIN 29.1 PG (27-31); MEAN CORPUSCULAR HGB CONC 32.8 g/dL (33-37); MEAN CORPUSCULAR VOLUME 88.8 FL (81-99); MEAN PLATELET VOLUME 10.5 FL (7.4-12.2); MONOCYTES % (AUTO) 5.7 % (5-15); NEUTROPHILS # (AUTO) 5.18 10*3/UL; NEUTROPHILS % (AUTO) 73.2 % (50-80)
[2018-09-08 04:58] LABS: PLATELET MORPHOLOGY COMMENT NORMAL MORPHOLOGY (NORM); RBC MORPHOLOGY COMMENT NORMAL MORPHOLOGY (NORM); WBC MORPHOLOGY COMMENT NORMAL MORPHOLOGY (NORM)
[2018-09-08] MEDS: ENOXAPARIN SODIUM 30 MG/0.3 ML SYRINGE SUBCUT SCH (08:21)
[2018-09-08] MEDS: CHOLECALCIFEROL 1000 IU TABLET PO SCH (08:21)
[2018-09-08] MEDS: DOCUSATE 100 MG CAPSULE PO SCH ×2 (08:22→20:52)
--- NOTE | 2018-09-08 10:06 | PTI REPORT ---
Thank you for the referral of Tere Thomas. She was seen on 09/07/18 for an inpatient evaluation status post right hip fracture. SUBJECTIVE: The patient is an 83-year-old female. The patient reports that she lives in [place] with her . She has a ramp to get into her home and one stair within the home. The patient reports she doesn't use an assistive device at home. She was previously independent with all ADLs per and per patient. The patient's main complaint is having to urinate a lot and that her right hip feels stiff. PAST MEDICAL HISTORY: Past medical history can be found in the patient's medical record. OBJECTIVE FINDINGS: General observations: Per nursing, the patient has low blood pressure and was on Dilaudid last night and has been desaturating on oxygen. The patient is on 2.5 liters of oxygen on the mask. The patient's oxygen saturation ranges from 77- 100% with activity. The patient required max verbal cues for technique. The patient had very disoriented speech at times. The patient is on an IV and has a pump on her right leg. Transfers: The patient requires mod assist x2 for sit to stand transfer. The patient's blood pressure was 120/47 initially. The patient attempted to roll to the left and got dizzy, but this improved with time. Ambulation: The patient was able to ambulate with walker with min assist x2 for approximately 6 feet, touch down weight-bearing as tolerated. Again, the patient requires max verbal cues for technique. The patient's blood pressure post ambulation was 115/70s. Bed mobility: The patient requires max assist x2 for sit to supine transfer and max assist x2 for repositioning in her bed. ASSESSMENT: The patient is an 83-year-old female who is status post right hip fracture. The patient would benefit from skilled therapy in order to improve overall functional mobility to return to prior level of function. The patient's prognosis for therapy is fair. Problem List: Decreased strength Decreased functional mobility Increased confusion Short-Term Goals: To be met by discharge from inpatient: Patient will be independent with all transfers with walker. Patient will be able to ambulate 150 feet with walker. Patient will tolerate ascending and descending one step in order to improve functional mobility until she can return to prior level of function with walker. Long-Term Goals: To be met following discharge from inpatient: Patient will be seen by outpatient physical therapy. TREATMENT PLAN: Patient will be seen B.I.D during the week and one time per day over the weekend as an inpatient for therapeutic exercise, functional activity, neuromuscular reeducation, gait training, modalities as needed, and range of motion. INITIAL TREATMENT: Treatment today consisted of the initial evaluation. The patient transferred from her chair to her bed with mod assist x2 for sit to stand transfer and min assist x2 for gait and cues for safety and technique. Before transferring to bed, the patient was instructed to stand for additional time with mod assist x1 while the LAB ASSOCIATE performed ray care for approximately two minutes. The patient required max cueing for hand placement with walker. The patient was left in bed with call light within reach and bed alarm activated. AVEL
[2018-09-08] MEDS: Lactated Ringers 1,000 ML PRIMARY IV SCH (10:51)
[2018-09-08 10:55] LABS: BLOOD UREA NITROGEN 14 mg/dL (7-22); BUN/CREATININE RATIO 23.33 (6-20)
--- NOTE | 2018-09-08 11:14 | PT.PROG ---
Progress Note Progress Note: S. Patient agreed to get to the chair. O. Patient transferred from supine to seated at the edge of bed then from sit to stand. Patient ambulated 5 feet to the chair and was left with OT for further therapy. A. Patient tolerated transfers and ambulation poor, she required mod assist x 3 for supine to sit transfer and mod assist x 2 with sit to stand and ambulation. She was confused about what she was doing and would continue to benefit from skilled therapy to increase mobility and safety at this time. P. continue POC.
--- NOTE | 2018-09-08 16:02 | OTI REPORT ---
Thank you for the referral of Tere Thomas. She was seen on 09/08/18 for an occupational therapy inpatient evaluation status post right hip fracture. SUBJECTIVE: The patient is an 83-year-old female who is being seen today secondary to falling on the ice per her 's report. He reports that he has noticed a slight decline in cognitive function for the last 8 months. Prior to admission the patient was needing a few more cues in order to complete activities at home. He states he has noticed a little bit of memory loss. He states since the surgery she has been a lot worse. Prior to admission the patient was able to dress self, was driving within the town of [place], and was completing tasks around the home independently. PAST MEDICAL HISTORY: Past medical history can be found in the patient's medical record. OBJECTIVE FINDINGS: Bed mobility/Transfers: The patient required max assist x2 to get from bed to chair. Activities of daily living: Once in chair we worked on ADLs. It was observed that she did need more verbal cues in order to follow instructions as well as min to mod assist for physical assistance to use the equipment properly. The patient was issued a executive staff assistant and a sock aide. They do have a higher toilet as well as a shower chair. Cognition: The patient was assessed with the Reece Cognitive Assessment (MoCA) secondary to concerns that staff is having with the patient and her processing. Visuospatial/Executive: 1/5 Namin/3 Attention: 3/6 Language: 2/3 Abstraction: 0/2 Delayed recall: 0/5 Orientation: 4/6 The patient had a total combined score of 12/30 which puts her in the LOWER/MODERATE cognitive impairment range. ASSESSMENT: The patient is demonstrating lower cognition. She requires a lot of short verbal cues to process information. She may benefit from a swingbed program to improve her overall abilities. The patient's and family were spoken to about the cognitive evaluation. As of now she will probably need 24-hour care secondary to cognitive deficits. This could be medication related as well. We will reassess earlier next week to see if this has improved at all. Problem List: Decreased ability to complete ADLs Decreased ability to complete functional transfers Decreased cognition Short-Term Goals: To be met by discharge from inpatient: Patient will be able to dress self with use of adaptive devices with minimal verbal cues. Patient will be able to complete a chair to bathroom transfer with stand by assist. Patient will be able to stand at sink for 3-4 minutes to complete hygiene activities without loss of balance. Patient will improve her MoCA score to 19/30 and increase her cognitive processing abilities. Long-Term Goals: To be met following discharge from inpatient: Patient will return home, demonstrating safety and independence with all basic ADLs and functional transfers. TREATMENT PLAN: Patient will be seen B.I.D during the week and one time per day over the weekend as an inpatient to address the above goals and objectives. INITIAL TREATMENT: Treatment today consisted of the initial evaluation activities only. AVEL
--- NOTE | 2018-09-08 16:26 | OT.PROG ---
Progress Note Progress Note: S: pt was talkative today and accompanied by . She did report pain. She reported that she did get a nap today. O: pt was seen in her room as we assisted PT. She completed bed mobility with max A x2. She was left upright in supine position in bed with call light within reach. A: Pt needed vc's to complete bed mobility and transfers. P: continue per POC.
--- NOTE | 2018-09-08 16:31 | PT.PROG ---
Progress Note Progress Note: S. Patient agreed to get back in bed. O. Patient transferred from sit to stand then ambulated 5 feet to the bed where she performed long arc quads, and heel toe raises x 10 bilaterally. Patient was left at edge of bed with OT for further therapy. A. Patient tolerated ambulation much better this afternoon compared to this morning. Patient would continue to benefit from skilled therapy to increase strength, mobility and safety. P. Continue POC.
--- NOTE | 2018-09-08 17:46 | ORTHO.PROG ---
Last Taken Vital Signs: Vital Signs - Last Taken Temperature 96.8 F 09/08/18 17:00 Pulse Rate 70 09/08/18 17:00 Respiratory Rate 16 09/08/18 17:00 Blood Pressure 112/53 09/08/18 17:00 Pulse Ox 95 09/08/18 17:00 Subjective: Patient doing well good pain control this morning was able to get up and ambulate. Patient working with therapy. No shortness of breath or chest pain. Objective: Patient's drain in place with negative suction., Popliteal adductor hiatus or thigh pain. No significant swelling good pulses brisk refill nonfocal neurologic exam. Laboratory Results 09/08/18 09/08/18 09/08/18 04:45 04:45 04:45 WBC 7.07 RBC 3.40 L Hgb 9.9 L Hct 30.2 L MCV 88.8 MCH 29.1 MCHC 32.8 L RDW Std Deviation 52.1 H RDW Coeff of Franklin 16.7 H Plt Count 174 MPV 10.5 Immature Gran % (Auto) 0.1 Neut % (Auto) 73.2 Lymph % (Auto) 19.0 Mitchell % (Auto) 5.7 Eos % (Auto) 1.7 Baso % (Auto) 0.3 Immature Gran # (Auto) 0.01 Neut # (Auto) 5.18 Lymph # (Auto) 1.34 Mitchell # (Auto) 0.40 Eos # (Auto) 0.12 Baso # (Auto) 0.02 WBC Morphology Comment Normal morphology Plt Morphology Comment Normal morphology RBC Morph Comment Normal morphology Sodium 135 Potassium 3.5 L Chloride 103 Carbon Dioxide 27 Anion Gap 5 BUN 14 Creatinine 0.6 BUN/Creatinine Ratio 23.33 H Glucose 116 H Calculated Osmolality 281.0 Calcium 7.8 L Vitamin D 25-Hydroxy 12.9 L TSH Free T4 09/08/18 04:45 WBC RBC Hgb Hct MCV MCH MCHC RDW Std Deviation RDW Coeff of Franklin Plt Count MPV Immature Gran % (Auto) Neut % (Auto) Lymph % (Auto) Mitchell % (Auto) Eos % (Auto) Baso % (Auto) Immature Gran # (Auto) Neut # (Auto) Lymph # (Auto) Mitchell # (Auto) Eos # (Auto) Baso # (Auto) WBC Morphology Comment Plt Morphology Comment RBC Morph Comment Sodium Potassium Chloride Carbon Dioxide Anion Gap BUN Creatinine BUN/Creatinine Ratio Glucose Calculated Osmolality Calcium Vitamin D 25-Hydroxy TSH 1.98 Free T4 1.46 Vital Signs (24 hrs) 09/07/18 19:48 09/07/18 23:47 09/08/18 04:30 Temperature 97.9 F 97.2 F Pulse Rate [Pulse Oximeter] 86 80 73 Respiratory Rate 18 18 20 Blood Pressure [Left Arm] 127/71 Blood Pressure [Right Arm] 112/60 126/68 Pulse Ox 95 97 96 09/08/18 05:35 09/08/18 07:12 09/08/18 13:00 Temperature 97.6 F 97.5 F Pulse Rate [Pulse Oximeter] 76 71 Respiratory Rate 24 16 Blood Pressure [Left Arm] 124/60 Blood Pressure [Right Arm] 103/60 Pulse Ox 96 92 95 09/08/18 17:00 Temperature 96.8 F Pulse Rate [Pulse Oximeter] 70 Respiratory Rate 16 Blood Pressure [Left Arm] Blood Pressure [Right Arm] 112/53 Pulse Ox 95 Assessment: A right hemiarthroplasty doing well Anemia Plan: Patient will continue with physical therapy and occupational therapy, DVT prophylaxis with pneumatic sequentials and Lovenox. Pain control with oral medication as needed.
--- NOTE | 2018-09-08 19:56 | PDOC(PROG) ---
Date of Service: 09/08/18 Time of Service: 19:50 Interval History: patient seen and evaluated earlier today, discussed with family no chest pain, no shortness of breath, no nausea or vomiting. MOCA was low. for my exam today, patient alert and oriented, lucid today. Objective : Data - Labs CBC and BMP: 09/08/18 04:45 09/08/18 04:45 Objective : Exam - General General Appearance: No Acute Distress, Cooperative Additional General Exam Details: Vital Signs - Last Taken Temperature 96.8 F 09/08/18 17:00 Pulse Rate 70 09/08/18 17:00 Respiratory Rate 16 09/08/18 17:00 Blood Pressure 112/53 09/08/18 17:00 Pulse Ox 95 09/08/18 17:00 - Eye Eye Exam: No Scleral Icterus - ENT ENT Exam: Mucous Membranes Moist - Neck Neck Exam: JVP is not Raised - Respiratory Respiratory Exam: Clear to Auscultation - Bilaterally, Breathing Non Labored - Cardiovascular Cardiovascular Exam: RRR, No Murmur, No Clicks, No Gallops, No Rubs, No JVD - GI/Abdominal GI/Abdominal Exam: Normal Bowel Sounds, Non Tender, Non Distended, Soft - Extremities Extremities Exam: No Clubbing Present, No Edema Present, No Cyanosis Present Additional Extremities Exam Details: incision is dressed, clean, dry, intact - Neurological Neurological Exam: Alert, Oriented x 3 (at least today on exam.), No Facial Droop, Speech Intact / Clear Assessment and Plan - Patient Problems (1) Benign essential hypertension Current Visit: Yes Status: Chronic Onset Date: 08/03/12 Code(s): I10 - Essential (primary) hypertension (2) Hip fracture Current Visit: Yes Status: Acute Code(s): S72.009A - Fracture of unspecified part of neck of unspecified femur, initial encounter for closed fracture Qualifiers: Encounter type: initial encounter Fracture type: closed Laterality: right Qualified Code(s): S72.001A - Fracture of unspecified part of neck of right femur, initial encounter for closed fracture (3) Hypercholesterolemia Current Visit: Yes Status: Acute Code(s): E78.00 - Pure hypercholesterolemia, unspecified (4) Dementia Current Visit: Yes Status: Acute Code(s): F03.90 - Unspecified dementia without behavioral disturbance Qualifiers: Dementia type: Alzheimer's disease Alzheimer's disease onset: late-onset Dementia behavioral disturbance: without behavioral disturbance Qualified Code(s): G30.1 - Alzheimer's disease with late onset; F02.80 - Dementia in other diseases classified elsewhere without behavioral disturbance (5) Status post hip surgery Current Visit: Yes Status: Acute Code(s): Z98.890 - Other specified postprocedural states - Assessment / Plan Additional Assessment/Plan Details: PT and OT replace potassium DVT prophylaxis pain control still going to hold off on anti-HTN meds probably to swing bed tomorrow for continued PT and OT catheter out today.
[2018-09-08] MEDS ORDERED: POTASSIUM CHLORIDE 20 MEQ TAB PO ONE (19:58)
[2018-09-09] MEDS: HYDROcodone-APAP 5 MG -325 MG TABLET PO PRN ×2 (01:15→08:20)
[2018-09-09 05:02] LABS: BASOPHILS # (AUTO) 0.01 10*3/UL; BASOPHILS % (AUTO) 0.1 % (0-1); EOSINOPHILS # (AUTO) 0.12 10*3/UL; EOSINOPHILS % (AUTO) 1.8 % (0-8); Hematocrit [HCT] 29.9 % (37.0-47.0); Hemoglobin [HGB] 9.7 g/dL (12.0-16.0); LYMPHOCYTES # (AUTO) 1.53 10*3/uL; MEAN CORPUSCULAR HEMOGLOBIN 28.9 PG (27-31); MEAN CORPUSCULAR HGB CONC 32.4 g/dL (33-37); MONOCYTES # (AUTO) 0.44 10*3/UL (0.3-0.8); MONOCYTES % (AUTO) 6.5 % (5-15); NEUTROPHILS # (AUTO) 4.61 10*3/UL; NEUTROPHILS % (AUTO) 68.7 % (50-80); RED BLOOD COUNT 3.36 10^6/uL (4.20-5.40)
[2018-09-09 05:04] LABS: PLATELET MORPHOLOGY COMMENT NORMAL MORPHOLOGY (NORM); RBC MORPHOLOGY COMMENT NORMAL MORPHOLOGY (NORM); WBC MORPHOLOGY COMMENT NORMAL MORPHOLOGY (NORM)
[2018-09-09 05:19] LABS: BLOOD UREA NITROGEN 11 mg/dL (7-22); BUN/CREATININE RATIO 18.33 (6-20)
[2018-09-09] MEDS: ENOXAPARIN SODIUM 30 MG/0.3 ML SYRINGE SUBCUT SCH (08:20)
[2018-09-09] MEDS: CHOLECALCIFEROL 1000 IU TABLET PO SCH (08:20)
[2018-09-09] MEDS: DOCUSATE 100 MG CAPSULE PO SCH (08:20)
[2018-09-09 08:23] VITALS: RESP 20
[2018-09-09] MEDS ORDERED: POTASSIUM CHLORIDE 20 MEQ TAB PO ONE (10:09)
--- NOTE | 2018-09-09 10:34 | OT.PROG ---
Progress Note Progress Note: S: pt stated that she needed to use the bathroom. O: tx consisted of functional ambulation x 10' from recliner to toilet. pt completed doffing of LE brief and pants independently, completed toileting tasks and hygiene with x2 vcs, pt completed STS x2 and needed MAX A for donning LE clothes due to fatigue. pt transferred to w/c with CGA fro safety and MIN VCs for positioning self. pt completed UE RTB exercises of chest pulls, biceps and triceps x 20 each. A: pt is improving in functional ambulation and ADL tasks. pt would benefit from continued skilled therapy for increasing functional ability and strength. P: continue POC
[2018-09-09] MEDS ORDERED: PANTOPRAZOLE 40 MG TABLET PO SCH (12:30)
--- NOTE | 2018-09-09 12:34 | DI ---
AP CHEST X-RAY, 09/09/2018 11:54 AM : Clinical History: Hypoxia. Previous Exam: 08/12/2005. This film cannot be retrieved from the digital archives. Soft Tissues: No acute soft tissue abnormality. Bones: Normal. Heart: Mild cardiomegaly. Vessels are quite prominent although still relatively sharp. This patient m ay have very early and mild CHF. Lungs: No infiltrates. Effusion(s): There is blunting of the left costophrenic angle that may represent fluid. Mediastinum: Normal mediastinum. Nodules: No pulmonary nodules. Reading: There is cardiomegaly with what may represent early CHF and a possible small left pleural effusion.
[2018-09-09 13:09] VITALS: BP 123/62; TEMP 97.9; O2SAT 95
--- NOTE | 2018-09-09 14:32 | DCSUMMARY ---
Hospitalization Summary Admit Date: 09/05/2018 Discharge Date: 09/09/18 Primary Diagnosis:: status post right hip fracture ORIF Hospital Course: This very pleasant 83-year-old female who has GERD and hypercholesterolemia and the earlier stages of dementia. She came in after a fall and was found to have a right hip fracture. She was admitted, surgery was done by Dr. Isaac. See his notes regarding the procedure. Hospital service and was consulted to address medical concerns of GERD and hypercholesterolemia as well as other medical issues during the hospital stay. In terms of her surgical recovery, her pain was controlled with hydrocodone, she was on Lovenox for DVT prophylaxis, will require that for another 24 days to 31 days. She did PT and OT but requires further therapies, particularly with underlying dementia for more reinforcement and improvement in terms of her ability to move and function at home. She was evaluated for swing bed and was accepted. Terms medical issues, her GERD, we added Protonix on the date of discharge from the acute hospital. She had some labs done a week, vitamin D deficiency. Her still waiting for B12 and folate level. Her CT scan of her head did not show any explanation for her dementia. She does have a fairly low mental state examination and waxes and wanes in terms of her orientation, but certainly has not had severe delirium during the hospital stay. Today, no completes of chest pain, shortness breath, nausea or vomiting. Hip pain is controlled. Patient is discharged to the swing bed. Assessment and Plan: 1. As per discharge assessments noted 2. Disposition: Patient is discharging to swing bed 3. Condition on discharge, stable and improved. 4. Diet: regular diet 5. Activities: Continue with PT and OT and as per Dr. Miller 6. Follow-Up: 1. Hospitalist and orthopedic services will continue to follow the patient. 7. Medications at the Time of Discharge: Active Medications Generic Name Dose Route Start Last Admin Trade Name Freq PRN Reason Stop Dose Admin Hydrocodone Bitart/Acetaminophen 1 - 2 tab 09/06/18 15:42 09/09/18 08:20 [place] 5/325 Tab PO 1 tab Q4H PRN Administration Pain Cholecalciferol 1,000 iu 09/08/18 09:00 09/09/18 08:20 Vitamin D3 PO 1,000 iu DAILY CARLOS Administration Docusate Sodium 100 mg 09/06/18 21:00 09/09/18 08:20 Colace PO 100 mg BID CARLOS Administration Enoxaparin Sodium 30 mg 09/07/18 09:00 09/09/18 08:20 Lovenox Inj SUBCUT 30 mg DAILY CARLOS Administration Sodium Chloride 25 mls @ 200 mls/hr 09/06/18 15:42 Normal Saline 0.9% IV .Post Infusion PRN No Primary IV for Flush ONLY Ondansetron HCl 4 mg 09/06/18 15:42 09/06/18 19:43 Zofran Inj IVP 4 mg Q4H PRN Administration NAUSEA / VOMITING Pantoprazole Sodium 40 mg 09/09/18 12:30 09/09/18 13:43 Protonix PO 40 mg AC BK ACRLOS Administration 8. Time, care, counseling and coordination of care for this discharge is greater than 30 minutes. Exam - Vitals Vital Signs: Vital Signs Weight 191 lb 12.8 oz Vital Signs - Last Taken Temperature 97.9 F 09/09/18 13:00 Pulse Rate 81 09/09/18 13:00 Respiratory Rate 20 09/09/18 13:00 Blood Pressure 123/62 09/09/18 13:00 Pulse Ox 95 09/09/18 13:00 - General General Appearance: No Acute Distress, Cooperative - Eye Eye Exam: POSITIVE: No Scleral Icterus - ENT ENT Exam: POSITIVE: Mucous Membranes Moist - Neck Neck Exam: JVP is not Raised - Respiratory Respiratory Exam: POSITIVE: Clear to Auscultation - Bilaterally, Breathing Non Labored - Cardiovascular Cardiovascular Exam: POSITIVE: RRR, No Murmur, No Clicks, No Gallops, No Rubs, No JVD - GI/Abdominal GI/Abdominal Exam: POSITIVE: Normal Bowel Sounds, Non Tender, Non Distended, Soft - Extremities Extremities Exam: POSITIVE: No Clubbing Present, No Edema Present, No Cyanosis Present - Neurological Neurological Exam: POSITIVE: Alert, Oriented x 3 (At this time.), No Facial Droop, Speech Intact / Clear Data Peritnent Studies: 09/05/18 09/08/18 09/08/18 15:30 04:45 04:45 WBC Hgb Hct Plt Count Sodium Potassium Chloride Carbon Dioxide Anion Gap BUN Creatinine Glucose Calcium Vitamin B12 368 Vitamin D 25-Hydroxy 12.9 L Serum Folate 14.7 TSH Free T4 Ur Culture Indicated? Culture set 09/08/18 09/09/1809/09/19 04:45 04:45 04:45 WBC 6.72 Hgb 9.7 L Hct 29.9 L Plt Count 191 Sodium 135 Potassium 3.7 L Chloride 103 Carbon Dioxide 27 Anion Gap 5 BUN 11 Creatinine 0.6 Glucose 107 Calcium 7.9 L Vitamin B12 Vitamin D 25-Hydroxy Serum Folate TSH 1.98 Free T4 1.46 Ur Culture Indicated? Urine culture was noted for lactobacillus species, antibiotics were stopped. Patient Problems - Patient Problem List (1) Status post hip surgery Current Visit: Yes Status: Acute Code(s): Z98.890 - Other specified postprocedural states Category: Surgical (2) Hip fracture Current Visit: Yes Status: Acute Code(s): S72.009A - Fracture of unspecified part of neck of unspecified femur, initial encounter for closed fracture Qualifiers: Encounter type: initial encounter Fracture type: closed Laterality: right Qualified Code(s): S72.001A - Fracture of unspecified part of neck of right femur, initial encounter for closed fracture Category: Medical (3) Benign essential hypertension Current Visit: Yes Status: Chronic Onset Date: 08/03/12 Code(s): I10 - Essential (primary) hypertension Category: Medical (4) Hypercholesterolemia Current Visit: Yes Status: Acute Code(s): E78.00 - Pure hypercholesterolemia, unspecified Category: Medical (5) Dementia Current Visit: Yes Status: Acute Code(s): F03.90 - Unspecified dementia without behavioral disturbance Qualifiers: Dementia type: Alzheimer's disease Alzheimer's disease onset: late-onset Dementia behavioral disturbance: without behavioral disturbance Qualified Code(s): G30.1 - Alzheimer's disease with late onset; F02.80 - Dementia in other diseases classified elsewhere without behavioral disturbance Category: Medical
--- NOTE | 2018-09-12 12:28 | PT.PROG ---
Progress Note Progress Note: S. Patient agreed to go to the therapy gym. O. Patient was wheeled to the therapy gym where she had heat to her hip then performed seated exercises in the form of; heel slides, quad sets, ankle pumps, short arc quads all x 10. Patient performed sit to stand transfers x 5 then ambulated 50 feet to the wheelchair and was returned to her room where she was left in her chair with alarm and call light. A. Patient Tolerated therapy fair, she requires min to mod assist with transfers and ambulation. Patient would benefit from swing bed at this time. P. Continue POC.
== END 2018-09-09 14:32 | disposition swing bed (61) | DRG 470 ==
LOC: ER 11:29 → MED/SURG 13:48 → OPS 09-06 10:15 → MED/SURG 09-06 15:15
PROVIDERS: ADMIT Internal Medicine; ATTEND Internal Medicine